=== PATIENT | female | born 1980 | race Hispanic/Latino ===

== ENCOUNTER 2017-12-05 17:19 | Emergency (ER) | payer MEDICAID ==
[2017-12-05 17:39] VITALS: PULSE 61; RESP 16; O2SAT 100
--- NOTE | 2017-12-05 18:27 | ED PDOC ---
HPI: Headache Time Seen by Provider: 12/05/17 17:43 Chief Complaint (Nursing): Headache Chief Complaint (Provider): Headache History Per: Patient History/Exam Limitations: no limitations Onset/Duration Of Symptoms: Hrs Current Symptoms Are (Timing): Still Present Additional Complaint(s): Irma Oh is a 37 year old female with no past medical history who is presenting to the ED for evaluation of headache, s/p trauma at 8:30 am today. Patient states that she hit her head on a rack hanging in the shower. At the time, she states that she did not lose consciousness, black out or experience any visual changes. At around 9:30 am, patient reports that she noted flashing side of her left periphery that continued intermittently for an hour and then resolved. She adds that the headache has moved from the left side to the right side and reports feeling weak and numb where her head was hit. Around 4 pm today, patient states that while at a restaurant she felt like her vision was going black and started to have sweats. After she took her sweater off and calm down, she reports that the symptoms resolved. Patient adds that she has had those symptoms in the past and it was considered a visual migraine. PMD: In [place] Past Medical History Reviewed: Historical Data, Nursing Documentation, Vital Signs Vital Signs: Last Vital Signs Temp 98.5 F 12/05/17 17:34 Pulse 61 12/05/17 17:34 Resp 16 12/05/17 17:34 BP 134/84 12/05/17 17:34 Pulse Ox 100 12/05/17 17:34 - Medical History PMH: No Chronic Diseases - Surgical History Surgical History: No Surg Hx - Family History Family History: States: Unknown Family Hx - Social History Current smoker - smoking cessation education provided: No Alcohol: Social (less than a beer a day) Drugs: Denies - Allergies Allergies/Adverse Reactions: Allergies Allergy/AdvReac Type Severity Reaction Status Date / Time shellfish derived Allergy VOMITING Verified 12/05/17 17:33 Review of Systems ROS Statement: Except As Marked, All Systems Reviewed And Found Negative Eyes: Positive for: Vision Change Neurological: Positive for: Weakness, Numbness, Headache Physical Exam - Reviewed Nursing Documentation Reviewed: Yes Vital Signs Reviewed: Yes - Physical Exam Appears: Positive for: Well (appearing), No Acute Distress Head Exam: Negative for: ATRAUMATIC ((+) mild tenderness to left temporal scalp) Eye Exam: Positive for: Normal appearance, EOMI, PERRL. Negative for: Nystagmus, Other (visual field deficits) Neck: Positive for: Painless ROM, Supple Cardiovascular/Chest: Positive for: Regular Rate, Rhythm. Negative for: Murmur Respiratory: Positive for: Normal Breath Sounds. Negative for: Respiratory Distress Gastrointestinal/Abdominal: Positive for: Soft. Negative for: Tenderness Back: Positive for: Normal Inspection. Negative for: Decreased ROM Extremity: Positive for: Normal ROM. Negative for: Deformity Lymphatic: Negative for: Adenopathy Neurologic/Psych: Positive for: Alert, medical legal investigator II-XII (normal), Oriented (x3), Gait (normal ), Other (normal speech, cerebellar test normal). Negative for: Motor/Sensory Deficits - ECG O2 Sat by Pulse Oximetry: 100 (RA) Pulse Ox Interpretation: Normal Medical Decision Making Medical Decision Making: Time: 18:03 Impression: Head Injury rule out traumatic brain injury Plan: --CT Head --ED Urine CT Head: IMPRESSION: No acute intracranial abnormality. Scribe Attestation: Documented by, Tia Haile acting as a scribe for Jane Palencia MD. Provider Scribe Attestation: All medical record entries made by the Scribe were at my direction and personally dictated by me. I have reviewed the chart and agree that the record accurately reflects my personal performance of the history, physical exam, medic al decision making, and the department course for this patient. I have also personally directed, reviewed, and agree with the discharge instructions and disposition. Disposition - Clinical Impression Clinical Impression: Headache, Head injury Counseled Patient/Family Regarding: Studies Performed, Diagnosis, Need For Followup - Disposition Disposition: Routine/Home Disposition Time: 20:54 Condition: GOOD Additional Instructions: FOLLOW UP WITH YOUR DOCTOR IN A WEEK FOR REEVALUATION Instructions: Minor Head Injury (DC) Forms: [facility] (Mexican)
[2017-12-05 21:01] VITALS: BP 114/61; TEMP 98.2
--- NOTE | 2017-12-06 09:42 | CT ---
Date of service: 12/05/2017 PROCEDURE: CT HEAD WITHOUT CONTRAST. HISTORY: headache COMPARISON: None available. TECHNIQUE: Axial computed tomography images were obtained through the head/brain without intravenous contrast. Radiation dose: Total exam DLP = 731.92 mGy-cm. This CT exam was performed using one or more of the following dose reduction techniques: Automated exposure control, adjustment of the mA and/or kV according to patient size, and/or use of iterative reconstruction technique. FINDINGS: HEMORRHAGE: No intracranial hemorrhage. BRAIN: No mass effect or edema. No atrophy or chronic microvascular ischemic changes. VENTRICLES: Unremarkable. No hydrocephalus. CALVARIUM: Unremarkable. PARANASAL SINUSES: Unremarkable as visualized. No significant inflammatory changes. MASTOID AIR CELLS: Unremarkable as visualized. No inflammatory changes. OTHER FINDINGS: None. IMPRESSION: Normal CT of the Head. No intracranial mass, hemorrhage or evidence of acute infarct. The preliminary findings for this examination were reported by [facility] at 7:44 p.m. on 12/05/2017. There is concurrence of this report with the preliminary findings.
== END 2017-12-05 21:00 | disposition home or self-care (01) ==
LOC: H.ER 17:19
DX: S09.90XA Unspecified injury of head, initial encounter (principal); W22.8XXA Striking against or struck by other objects, initial encounter; Y92.002 Bathroom of unspecified non-institutional (private) residence as the place of occurrence of the external cause